=== PATIENT | female | born 1995 | race Caucasian/White ===

== ENCOUNTER 2017-09-03 16:23 | Emergency (ER) | payer MEDICAID ==
[~2017-09-03] VITALS: Ht 152.4 cm; Wt 60.0 kg
[2017-09-03 16:49] VITALS: BP 127/84
--- NOTE | 2017-09-03 17:15 | NUR ---
NO ANSWER IN ER LOBBY
--- NOTE | 2017-09-03 17:55 | NUR ---
NO ANSWER IN ER LOBBY
--- NOTE | 2017-09-03 18:10 | NUR ---
NO ANSWER IN ER LOBBY
== END 2017-09-03 18:10 | disposition left against medical advice (07) ==
LOC: MED 16:23
DX: J02.9 Acute pharyngitis, unspecified (principal); R11.10 Vomiting, unspecified; Z53.21 Procedure and treatment not carried out due to patient leaving prior to being seen by health care provider